=== PATIENT | female | born 1995 | race Caucasian/White ===

== ENCOUNTER 2024-07-16 20:41 | Emergency (ER) | payer OTHER ==
--- NOTE | 2024-07-17 01:04 | EDPHYS ---
Physician Documentation [facility] Name: Trish Estrada Age: 28 yrs Sex: Female : 1995 Arrival Date: 07/16/2024 Time: 20:41 Bed 17 Private MD: ED Physician Luciano Mata HPI: 07/16 22:12 This 28 yrs old Female presents to ER via Unassigned with complaints of Fall Injury. kb 22:12 Pt is a 28 year old female who slipped and fell in a puddle of water on the concrete. kb States she fell onto her back. complains of pain to low back only. Denies numbness/tingling to lower extremities.. 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 - Infectious Disease History:: Denies. - Social history:: Smoking status: Patient denies any tobacco usage or history of. Patient/guardian denies using. ROS: 07/16 22:11 Constitutional: As per HPI kb Exam: 22:11 Constitutional: This is a well developed, well nourished patient who is awake, alert, kb and in no acute distress. Head/Face: Normocephalic, atraumatic. ENT: Moist Mucous membranes Neck: Trachea midline, no thyromegaly or masses palpated, and no cervical lymphadenopathy. Supple, full range of motion without nuchal rigidity, or vertebral point tenderness. No Meningismus. Cardiovascular: Regular rate Respiratory: Respirations even and unlabored. No increased work of breathing. Talking in full sentences Abdomen/GI: Soft, non-tender. No distention Skin: Warm, dry with normal turgor. Normal color. MS/ Extremity: Pulses equal, no cyanosis. Neurovascular intact. Full, normal range of motion. Neuro: Awake and alert, GCS 15, oriented to person, place, time, and situation. Moves all extremities. Normal gait. 22:11 Back: pain, that is mild, that is moderate, of the lumbar area and sacrum, ROM is normal, normal spinal alignment noted, Vital Signs: 20:52 BP 121 / 91; Pulse 107; Resp 19; Temp 99.7(O); Pulse Ox 100% on R/A; Pain 4/10; mt4 20:52 Weight 85.28 kg (R); Height 5 ft. 3 in. (R); mt4 22:30 BP 122 / 76; Pulse 99; Resp 16; Pulse Ox 98% ; mt4 07/17 01:45 BP 118 / 75; Pulse 87; Resp 18; Temp 97.9; Pulse Ox 99% on R/A; Pain 2/10; mt4 07/16 20:52 Body Mass Index 33.30 (85.28 kg, 160.02 cm) mt4 07/16 20:52 Pain Scale: Adult mt4 07/17 01:45 Pain Scale: Adult mt4 Krys Coma Score: 07/16 20:52 Eye Response: spontaneous(4). Motor Response: obeys commands(6). Verbal Response: mt4 oriented(5). Total: 15. Trauma Score (Adult): 20:52 Eye Response: spontaneous(1); Verbal Response: oriented(1); Motor Response: obeys mt4 commands(2); Systolic BP: > 89 mm Hg(4); Respiratory Rate: 10 to 29 per min(4); Krys Score: 15; Trauma Score: 12 MDM: 20:43 Patient medically screened. 22:11 Differential diagnosis: contusion, fracture. Data reviewed: vital signs, nurses notes. Historians other than the Patient: EMS: [facility]. 07/17 00:27 Counseling: I had a detailed discussion with the patient and/or guardian regarding the historical points, exam findings, and any diagnostic results supporting the discharge/admit diagnosis, radiology results, the need for outpatient follow up, a family practitioner, to return to the emergency department if symptoms worsen or persist or if there are any questions or concerns that arise at home. 07/16 21:57 Order name: Test, Serum; Complete Time: 23:03 07/16 20:55 Order name: Lumbar Spine (3 Views) XRAY 07/16 20:55 Order name: Sacrum And Coccyx XRAY Administered Medications: 01:40 Drug: Ibuprofen PO 600 mg PO once Route: PO; mt4 01:53 Follow up: Response: No adverse reaction mt4 Disposition: 07:14 Co-signature as Attending Physician, Luciano Mata MD I agree with the assessment and ethan plan of care. Disposition Summary: 07/17/24 01:03 Discharge Ordered Notes: Location: Home kb Condition: Stable kb Diagnosis - Low back pain kb - Fall on same level, unspecified kb Followup: kb - With: Emergency Department - When: As needed - Reason: Worsening of condition Followup: kb - With: Private Physician - When: 2 - 3 days - Reason: Recheck today's complaints, Continuance of care, Re-evaluation by your physician Discharge Instructions: - Discharge Summary Sheet kb - Musculoskeletal Pain kb Forms: - Medication Reconciliation Form kb - Antibiotic Education kb - Prescription Opioid Use kb - Patient Portal Instructions kb - Leadership Thank You Letter kb Prescriptions: - Diclofenac Sodium 75 mg Oral tablet, delayed release (enteric coated) - take 1 tablet ORAL route 2 times per day As needed; 30 tablet; Refills: 0, kb Product Selection Permitted - orphenadrine citrate 100 mg Oral Tablet Sustained Release - take 1 tablet ORAL route 2 times per day As needed; 20 tablet; Refills: 0, kb Product Selection Permitted Signatures: Dispatcher [employer] EDMS Alesha Burgos, DRY TRANSFER MAN-C DRY TRANSFER MAN-Luciano Brar MD MD cha Tath, Molinec, RN RN mt4 Corrections: (The following items were deleted from the chart) 07/16 20:56 20:56 Sacrum And Coccyx+RAD.RAD.BRZ ordered. EDMS EDMS 22:18 20:56 Test, Urine+UC.LAB.BRZ ordered. EDMS EDMS
--- NOTE | 2024-07-17 01:04 | ER ---
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 c/o pain to right lower back 02/19. Denies N/V/D, Denies PMH. Care prior to arrival: None. Mechanism of Injury: Fall from standing position. approximately 3 feet. Trauma event details: Injury occurred in the [facility], Injury occurred: on a street or highway. Injury occurred: July 16, 2024 Injury occurred at: 20:00. 20:52 Acuity: SAURABH 3 mt4 20:52 Method Of Arrival: EMS mt4 22:00 Coronavirus screen: At this time, the client does not indicate any symptoms associated mt4 with coronavirus-19. Ebola Screen: Patient denies exposure to infectious person. Initial Sepsis Screen: Does the patient meet any 2 criteria? No. Patient's initial sepsis screen is negative. Does the patient have a suspected source of infection? No. Patient's initial sepsis screen is negative. Risk Assessment: Do you want to hurt yourself or someone else? Patient reports no desire to harm self or others. Onset of symptoms was July 16, 2024. 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 - Infectious Disease History:: Denies. - Social history:: Smoking status: Patient denies any tobacco usage or history of. Patient/guardian denies using. Screenin/04 20:52 Abuse screen: Denies injuries from another. Tuberculosis screening: No symptoms or risk mt4 factors identified. Fall risk. Exposure risk/Travel Screening: None identified. 21:00 [facility] ED Fall Risk Assessment (Adult) Altered Elimination. [facility] ED Fall Risk mt4 Assessment (Adult) History of falling in the last 3 months, including since admission Yes- single mechanical fall (1 pt) Confusion or Disorientation No (0 pts) Intoxicated or Sedated No (0 pts) Impaired Gait Yes (1 pt) Mobility Assist Device Used No (0 pt) Altered Elimination No (0 pt) Score/Fall Risk Level 0 - 2 = Low Risk Oriented to surroundings, Maintained a safe environment, Educated pt \\T\\ family on fall prevention, incl call for assistance when getting out of bed, Provided non-skid footwear, Hourly rounding (assess needs \\T\\ fall precautionary measures) done. 21:00 Nutritional screening: No deficits noted. mt4 Primary Survey: 20:52 NO uncontrolled hemorrhage observed. A: The client is awake and alert. The airway is mt4 patent. Airway: patent. Breathing/Chest: Spontaneous respiratory effort, equal unlabored respirations, breath sounds clear bilaterally, regular pattern, symmetrical chest rise and fall. Circulation: No external hemorrhage present. Regular and strong central pulse, skin warm/dry/normal color. Disability Pupils are equal, round, reactive to light and accommodation. Client is alert. Exposure/Environment: No obvious injuries are noted at this time. Reassessment Alertness and Airway: Awake and alert. The airway is patent. Breathing: Spontaneous respiratory effort, equal unlabored respirations, breath sounds clear bilaterally, regular pattern with symmetrical chest rise and fall. Circulation: No external hemorrhage noted. Regular and strong central pulse, skin warm/dry/normal color. Disability: Pupils Pupils are equal, round, reactive to light and accomodation. Alert. Secondary Survey: 22:59 HEENT: No deficits noted. Gastrointestinal: No deficits noted. : No deficits noted. mt4 Musculoskeletal: Capillary refill < 3 seconds, Range of motion: intact in all extremities, Swelling absent. Assessment: 20:52 General: Appears in no apparent distress. comfortable, Behavior is calm, cooperative, mt4 appropriate for age. Pain: Complains of pain in back Pain does not radiate. Pain currently is 4 out of 10 on a pain scale. Quality of pain is described as burning, aching. Neuro: Level of Consciousness is awake, alert, obeys commands, Oriented to person, place, time, situation, Appropriate for age Automotive Sales Specialist are equal bilaterally Speech is normal, Facial symmetry appears normal. Cardiovascular: Capillary refill < 3 seconds Patient's skin is warm and dry. Respiratory: Airway is patent Respiratory effort is even, unlabored, Respiratory pattern is regular, symmetrical. GI: Abdomen is round non-distended, Abd is non tender. : Denies burning with urination. Musculoskeletal: Capillary refill < 3 seconds, Range of motion: intact in all extremities. Vital Signs: 20:52 BP 121 / 91; Pulse 107; Resp 19; Temp 99.7(O); Pulse Ox 100% on R/A; Pain 4/10; mt4 20:52 Weight 85.28 kg (R); Height 5 ft. 3 in. (R); mt4 22:30 BP 122 / 76; Pulse 99; Resp 16; Pulse Ox 98% ; mt4 09/05 01:45 BP 118 / 75; Pulse 87; Resp 18; Temp 97.9; Pulse Ox 99% on R/A; Pain 2/10; mt4 07/16 20:52 Body Mass Index 33.30 (85.28 kg, 160.02 cm) mt4 07/16 20:52 Pain Scale: Adult mt4 07/17 01:45 Pain Scale: Adult mt4 Krys Coma Score: 07/16 20:52 Eye Response: spontaneous(4). Motor Response: obeys commands(6). Verbal Response: mt4 oriented(5). Total: 15. Trauma Score (Adult): 20:52 Eye Response: spontaneous(1); Verbal Response: oriented(1); Motor Response: obeys mt4 commands(2); Systolic BP: > 89 mm Hg(4); Respiratory Rate: 10 to 29 per min(4); Otterbein Score: 15; Trauma Score: 12 ED Course: 20:42 Patient arrived in ED. jj6 20:42 Alesha Burgos FNP-C is [facility]. kb 20:42 Luciano Mata MD is Attending Physician. kb 20:51 Isabel Mo, RN is Primary Nurse. mt4 20:52 Patient has correct armband on for positive identification. Bed in low position. Call mt4 light in reach. Side rails up X 1. Patient maintains SpO2 saturation greater than 95% on room air. 20:52 No provider procedures requiring assistance completed. Inserted saline lock: 20 gauge mt4 in right antecubital area, using aseptic technique. Blood collected. Flushed with 10 mL NS. Patient maintains SpO2 saturation greater than 95% on room air. Thermoregulation: warm blanket given to patient. 21:11 Radiology exam delayed due to test not completed at this time. az 22:53 Triage completed. mt4 23:45 Lumbar Spine (3 Views) XRAY In Process Unspecified. EDMS 23:45 Sacrum And Coccyx XRAY In Process Unspecified. EDMS 07/17 02:24 Provided Education on: FALLS, SAFETY. mt4 02:24 IV discontinued, intact, bleeding controlled, No redness/swelling at site. Pressure mt4 dressing applied. 02:26 Arm band placed on right wrist. mt4 Administered Medications: 01:40 Drug: Ibuprofen PO 600 mg PO once Route: PO; mt4 01:53 Follow up: Response: No adverse reaction mt4 Medication: 02:26 VIS not applicable for this client. mt4 Output: 02:24 Urine: 200ml (Voided); Total: 200ml. mt4 Outcome: 01:03 Discharge ordered by . kb 02:20 Condition: stable mt4 02:20 Discharge instructions given to patient, Instructed on discharge instructions, follow up and referral plans. medication usage, safety practices, Demonstrated understanding of instructions, follow-up care, medications, 02:20 Prescriptions given X 2, 02:24 Discharged to home ambulatory, mt4 02:25 Patient's length of stay in the Emergency Department was greater than 2 hours. PENDING mt4 URINE SAMPLE, PT UNABLE TO PROVIDE URINE IN TIMELY MANNER, STRAIGHT CATH ATTEMPTED, provider awarePatient's length of stay extended due to 02:27 Patient left the ED. mt4 Signatures: Dispatcher [employer] EDMS Alesha Burgos FNP-C ACCOUNTING GENERALIST-Ckb Shanda Sanchez Jennifer [email or web address] Isabel Mo, RN RN mt4
[2024-07-17] MEDS ORDERED: IBUPROFEN 200 MG TAB PO ONE (01:36)
[2024-07-17 02:52] VITALS: BP 118/75; TEMP 97.9; O2SAT 99
--- NOTE | 2024-07-17 11:33 | RAD REPORT ---
EXAM DESCRIPTION: RAD - Lumbar Spine 3 Views - 07/16/2024 11:43 pm CLINICAL HISTORY: The patient is 28 years old and is Female; PAIN TECHNIQUE: Frontal and lateral views of the lumbar spine and sacrum. COMPARISON: No relevant prior studies available. FINDINGS: VERTEBRAE: Unremarkable. No acute fracture. Normal alignment. SACRUM/COCCYX: Unremarkable as visualized. No acute fracture. DISC SPACES: No acute findings. No significant narrowing. SOFT TISSUES: Unremarkable. IMPRESSION: Normal lumbar spine radiographs. Electronically signed by: Carolann Ahuja MD 07/17/2024 12:28 AM CDT RP Due to temporary technical issues with the PACS/Fluency reporting system, reports are being signed by the in house radiologist without review as a courtesy to ensure prompt reporting. The interpreting r adiologist is fully responsible for the content of the report.
--- NOTE | 2024-07-17 11:34 | RAD REPORT ---
EXAM DESCRIPTION: RAD - Sacrum And Coccyx - 07/16/2024 11:43 pm CLINICAL HISTORY: Pain. COMPARISON: None. TECHNIQUE: 3 views of the sacrum and coccyx FINDINGS: No acute osseous abnormality is noted. No dislocation present. Soft tissues are unrema rkable. IMPRESSION: No acute osseous abnormality. Electronically signed by: Scarlett Sales MD 07/17/2024 12:58 AM CDT RP Due to temporary technical issues with the PACS/Fluency reporting system, reports are being signed by the in house radiologist without review as a courtesy to ensure prompt reporting. The interpreting r adiologist is fully responsible for the content of the report.
== END 2024-07-17 02:27 | disposition home or self-care (01) ==
LOC: ER 20:41
DX: M54.50 Low back pain, unspecified (principal); W01.0XXA Fall on same level from slipping, tripping and stumbling without subsequent striking against object, initial encounter
CPT/HCPCS: 36415; 72100; 72220; 84703; 99284

== ENCOUNTER 2025-02-17 22:02 | Emergency (ER) | payer OTHER ==
[2025-02-17] MEDS ORDERED: hydrOXYzine HCL 25 MG TAB ONE (22:47)
[2025-02-17 23:00] LABS: Absolute Basophils 0.1 K/uL (0-0.5); Absolute Eosinophils 0.5 K/uL (0-0.5); Absolute Lymphocytes (CBC) 3.3 K/uL (0.7-4.9); Absolute Monocytes 0.8 K/uL (0.1-1.3); Absolute Neutrophil 8.1 K/uL (1.8-8.0); Basophils % 0.6 % (0-1.3); Eosinophils % 3.7 % (0-4.4); Lymphocytes % 25.8 % (15.3-44.8); MCH 28.4 pg (27.0-35.0); MCHC 34.2 g/dL (32.0-36.0); MPV 8.3 fL (7.6-11.3); Monocytes % 6.4 % (3.3-12.3); Neutrophils % 63.5 % (41.7-73.7); Nucleated Red Blood Cells % 0.1 % (0-0); Platelets 284 thou/uL (152-406); RBC Red Blood Cell Count 4.94 M/uL (3.86-4.86); Red Cell Distribution Width 12.9 % (12.1-15.2)
[2025-02-17 23:35] LABS: Anion Gap 13.5 mEq/L (5.0-15.0); BUN Blood Urea Nitrogen 20 mg/dL (7-18); Bicarbonate 23 mEq/L (21-32); Glomerular Filtration Rate 96 ml/min (=/>90); Glucose Level 97 mg/dL (74-106); Potassium 3.5 mEq/L (3.5-5.1); Sodium Level 139 mEq/L (136-145); Troponin High Sensitivity < 3.0 pg/mL (<58.9)
--- NOTE | 2025-02-17 23:50 | ER ---
Nurse's Notes [facility] Name: Trish Estrada Age: 29 yrs Sex: Female : 1995 Arrival Date: 02/17/2025 Time: 22:02 Bed 6 Private MD: Diagnosis: Palpitations;Acute stress reaction Presentation: 02/17 22:12 Chief complaint: Patient states: she feels like her heart is beating very fast for me1 about 4-5 days, reports anxiety recently. Coronavirus screen: Vaccine status: Patient reports being unvaccinated. Ebola Screen: No symptoms or risks identified at this time. Initial Sepsis Screen: Does the patient meet any 2 criteria? HR > 90 bpm. Does the patient have a suspected source of infection? No. Patient's initial sepsis screen is negative. Risk Assessment: Do you want to hurt yourself or someone else? Patient reports no desire to harm self or others. Onset of symptoms was February 12, 2025. 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 - Infectious Disease History:: Denies. - Social history:: Smoking status: Patient denies any tobacco usage or history of. Screenin:30 [facility] ED Fall Risk Assessment (Adult) History of falling in the last 3 months, vc1 including since admission No falls in past 3 months (0 pts) Confusion or Disorientation No (0 pts) Intoxicated or Sedated No (0 pts) Impaired Gait No (0 pts) Mobility Assist Device Used No (0 pt) Altered Elimination No (0 pt) Score/Fall Risk Level 0 - 2 = Low Risk Oriented to surroundings, Maintained a safe environment, Educated pt \T\ family on fall prevention, incl call for assistance when getting out of bed, Hourly rounding (assess needs \T\ fall precautionary measures) done. Abuse screen: Denies threats or abuse. Nutritional screening: No deficits noted. Tuberculosis screening: No symptoms or risk factors identified. Assessment: 23:00 Reassessment: Patient and/or family updated on plan of care and expected duration. Pain br2 level reassessed. Patient is alert, oriented x 3, equal unlabored respirations, skin warm/dry/pink. General: Appears in no apparent distress. comfortable, Behavior is calm, cooperative. 23:01 Pain: Complains of pain in mid-sternal area. Neuro: Matos Agitation-Sedation Scale br2 (RASS): 0 - Alert and Calm Level of Consciousness is awake, alert, obeys commands, Oriented to person, place, time, situation. Cardiovascular: Reports chest pain, Capillary refill < 3 seconds. Respiratory: Airway is patent Respiratory effort is even, unlabored, Respiratory pattern is regular, symmetrical. GI: No signs and/or symptoms were reported involving the gastrointestinal system. : No signs and/or symptoms were reported regarding the genitourinary system. EENT: No signs and/or symptoms were reported regarding the EENT system. Derm: No signs and/or symptoms reported regarding the dermatologic system. Musculoskeletal: No signs and/or symptoms reported regarding the musculoskeletal system. 23:52 Reassessment: Patient appears in no apparent distress at this time. Patient and/or vc1 family updated on plan of care and expected duration. Pain level reassessed. Patient is alert, oriented x 3, equal unlabored respirations, skin warm/dry/pink. Patient denies pain at this time. Patient states feeling better. Vital Signs: 22:12 BP 133 / 102; Pulse 97; Resp 20; Temp 98.3; Pulse Ox 100% ; Weight 83.46 kg; Height 5 me1 ft. 3 in. ; Pain 4/10; 23:00 BP 103 / 72; Pulse 81; Resp 16; Pulse Ox 98% ; vc1 23:52 BP 108 / 73; Pulse 74; Resp 16; Pulse Ox 98% ; vc1 22:12 Body Mass Index 32.59 (83.46 kg, 160.02 cm) me1 22:12 Pain Scale: Adult [facility] ED Course: 22:05 Patient arrived in ED. mr 22:07 Ales[facility] Burg[facility]C [facility] kb 22:07 Martínez Mercado MD is Attending Physician. kb 22:14 Triage completed. me1 22:14 Arm band placed on Patient placed in an exam room. me1 22:15 Patient has correct armband on for positive identification. Bed in low position. Call vc1 light in reach. site monitor on. Pulse ox on. NIBP on. 22:41 Inserted saline lock: 20 gauge in right antecubital area, using aseptic technique. vk Flushed with 10 mL NS. 22:41 Initial lab(s) drawn, by me, sent to lab. vk 22:44 Elise Sanabria, RN is Primary Nurse. br2 22:47 Basic Metabolic Panel Sent. vk 22:47 CBC with Diff Sent. vk 22:47 Troponin HS Sent. vk 22:50 XRAY Chest (1 view) In Process Unspecified. EDMS 02/18 00:04 No provider procedures requiring assistance completed. IV discontinued, intact, vc1 bleeding controlled, No redness/swelling at site. Pressure dressing applied. 00:05 Provided Education on: f/u with PCP. vc1 Administered Medications: 02/17 22:13 CANCELLED (Patient Refused): ativan1 mg IVP once kb 23:07 Drug: hydrOXYzine PO 25 mg PO once Route: PO; br2 04 00:03 Follow up: Response: No adverse reaction; Marked relief of symptoms vc1 00:03 Drug: hydrOXYzine PO 25 mg PO once Route: PO; vc1 00:03 Follow up: Response: Medication administered at discharge. vc1 Medication: 02/17 23:54 VIS not applicable for this client. vc1 Outcome: 23:49 Discharge ordered by . dave 02/18 00:05 Discharged to home ambulatory, with significant other, vc1 Condition: stable Discharge instructions given to patient, Instructed on discharge instructions, follow up and referral plans. Demonstrated understanding of instructions, follow-up care, 00:06 Patient left the ED. vc1 Signatures: Dispatcher [employer] EDGA Alesha Burgos, AUTO JOB ESTIMATOR-C AUTO JOB ESTIMATOR-Ckb Mar Casillas, Reg Reg mr Marla Shipman, RN RN vc1 Teressa Campbell, JULIANNA RN me1 Nelda Potts Elise Sanabria, RN RN br2 Corrections: (The following items were deleted from the chart) 02/17 22:16 22:14 Allergies: No Known Allergies; me1 me1 23:18 22:47 THYROID STIMULAT HORMONE+C.LAB.BRZ drawn and sent. vk EDMS
--- NOTE | 2025-02-17 23:50 | EDPHYS ---
Physician Documentation [facility] Name: Trish Estrada Age: 29 yrs Sex: Female : 1995 Arrival Date: 02/17/2025 Time: 22:02 Bed 6 Private MD: ED Physician Martínez Mercado HPI: 02/17 22:08 This 29 yrs old Female presents to ER via Unassigned with complaints of Fast heart beat.kb 22:08 Pt is a 29 year old female who presents for palpitations that started 4-5 days ago. kb States it feels similar to previous anxiety attacks, but is worse than she has ever had. Denies any medications. . 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 - Infectious Disease History:: Denies. - Social history:: Smoking status: Patient denies any tobacco usage or history of. ROS: 22:08 Constitutional: As per HPI kb Exam: 22:08 Constitutional: This is a well developed, well nourished patient who is awake, alert, kb and in no acute distress. Head/Face: Normocephalic, atraumatic. ENT: Moist Mucous membranes Cardiovascular: Regular rate Respiratory: Respirations even and unlabored. No increased work of breathing. Talking in full sentences Skin: Warm, dry with normal turgor. Normal color. MS/ Extremity: Pulses equal, no cyanosis. Neurovascular intact. Full, normal range of motion. Neuro: Awake and alert, GCS 15, oriented to person, place, time, and situation. 22:57 ECG was reviewed by the Attending Physician. kb Vital Signs: 22:12 BP 133 / 102; Pulse 97; Resp 20; Temp 98.3; Pulse Ox 100% ; Weight 83.46 kg; Height 5 me1 ft. 3 in. ; Pain 4/10; 23:00 BP 103 / 72; Pulse 81; Resp 16; Pulse Ox 98% ; vc1 23:52 BP 108 / 73; Pulse 74; Resp 16; Pulse Ox 98% ; vc1 22:12 Body Mass Index 32.59 (83.46 kg, 160.02 cm) me1 22:12 Pain Scale: Adult me1 MDM: 22:07 Medical Screening Exam initiated kb 23:48 Data reviewed: vital signs, nurses notes. kb 23:48 Differential diagnosis: anxiety, arrhythmia. Counseling: I had a detailed discussion kb with the patient and/or guardian regarding the historical points, exam findings, and any diagnostic results supporting the discharge/admit diagnosis, lab results, radiology results, the need for outpatient follow up, a family practitioner, to return to the emergency department if symptoms worsen or persist or if there are any questions or concerns that arise at home. ED course: Pt states she is feeling better after treatment, but feels like an attack is right under the surface. Requests a higher dose of the hydroxyzine prior to discharge. 04 22:11 Order name: Basic Metabolic Panel; Complete Time: 23:38 kb 0408 22:11 Order name: CBC with Diff; Complete Time: 23:01 kb 02/17 22:11 Order name: Troponin HS; Complete Time: 23:38 kb 08 23:18 Order name: Thyroid Stimulating Hormone; Complete Time: 23:38 EDMS 0408 22:11 Order name: XRAY Chest (1 view) kb 0408 22:11 Order name: Cardiac monitoring; Complete Time: 22:47 kb 08 22:11 Order name: EKG - Nurse/Tech; Complete Time: 22:47 kb 08 22:11 Order name: IV Saline Lock; Complete Time: 22:41 kb 08 22:11 Order name: Labs collected and sent; Complete Time: 22:47 kb 02/17 22:11 Order name: O2 Per Protocol; Complete Time: 22:41 kb 02/17 22:11 Order name: O2 Sat Monitoring; Complete Time: 22:41 kb EC:57 Rate is 83 beats/min. Rhythm is regular. QRS [place] is Normal. MI interval is normal at kb 144 msec. QRS interval is normal at 78 msec. QT interval is normal at 444 msec. Administered Medications: 22:13 CANCELLED (Patient Refused): ativan1 mg IVP once kb 23:07 Drug: hydrOXYzine PO 25 mg PO once Route: PO; br2 02/18 00:03 Follow up: Response: No adverse reaction; Marked relief of symptoms vc1 00:03 Drug: hydrOXYzine PO 25 mg PO once Route: PO; vc1 00:03 Follow up: Response: Medication administered at discharge. vc1 Disposition: 05:19 Co-signature as Attending Physician, Martínez Mercado MD I agree with the assessment sp4 and plan of care. I reviewed the patient's care provided by the Advanced Practice Provider and agree with the diagnosis and treatment plan. Disposition Summary: 02/17/25 23:49 Discharge Ordered Notes: Location: Home kb Condition: Stable kb Diagnosis - Palpitations kb - Acute stress reaction kb Followup: kb - With: Emergency Department - When: As needed - Reason: Worsening of condition Followup: kb - With: Private Physician - When: 2 - 3 days - Reason: Recheck today's complaints, Continuance of care, Re-evaluation by your physician Discharge Instructions: - Discharge Summary Sheet kb - Panic Attack, [id number]-[id number] kb - Palpitations, [id number]-[id number] kb Forms: - Medication Reconciliation Form kb - Antibiotic Education kb - Prescription Opioid Use kb - Patient Portal Instructions kb - Leadership Thank You Letter kb Signatures: Dispatcher [employer] EDMS Alesha Burgos, PRIMER INSERTING MACHINE ADJUSTER-C PRIMER INSERTING MACHINE ADJUSTER-Marla Rodrigez RN RN vc1 Martínez Mercado MD MD sp4 Teressa Campbell RN RN me1 Elise Sanabria RN RN br2 Corrections: (The following items were deleted from the chart) 02/17 22:11 22:11 BASIC METABOLIC PANEL+C.LAB.BRZ ordered. EDMS EDMS 22:11 22:11 CBC+H.LAB.BRZ ordered. EDMS EDMS 22:11 22:11 Troponin High Sensitivity+C.LAB.BRZ ordered. EDMS EDMS 22:11 22:11 Chest Single View+RAD.RAD.BRZ ordered. EDMS EDMS 22:13 22:11 Ativan IVP 1 mg IVP once ordered. kb kb 22:16 22:14 Allergies: No Known Allergies; me1 me1 23:18 22:13 THYROID STIMULAT HORMONE+C.LAB.BRZ ordered. EDMS EDMS
[2025-02-17] MEDS ORDERED: HYDRALAZINE HCL 25 MG TABLET ONE (23:58)
[2025-02-18 01:18] VITALS: TEMP 98.3
[2025-02-18 01:24] VITALS: O2SAT 98
[2025-02-18 01:29] VITALS: BP 108/73
--- NOTE | 2025-02-18 07:43 | RAD REPORT ---
EXAMINATION: ONE VIEW CHEST XR CLINICAL INDICATION: PALPITATIONS TECHNIQUE: Frontal chest projection is submitted. Examination is limited by patient positioning and t echnique. COMPARISON: No prior exam. FINDINGS: The lungs are well inflated and clear. The heart is normal in size. No displaced fractures identified . IMPRESSION: No acute intrathoracic abnormalities.
--- NOTE | 2025-02-18 11:57 | EKG ---
Test Date: 2025-02-17 Test Time: 22:52:20 Cosmetic Chemist: GUI MEASUREMENT RESULTS: Intervals: Rate: 83 KS: 144 QRSD: 78 QT: 378 QTc: 444 [place]: P: 65 KS: 144 QRS: 75 T: 29 INTERPRETIVE STATEMENTS: Normal sinus rhythm Normal ECG No previous ECG available for comparison Electronically Signed On 02-18-25 11:56:08 CDT by Gus Martínez
== END 2025-02-18 00:06 | disposition home or self-care (01) ==
LOC: ER 22:02
DX: R00.2 Palpitations (principal); F43.9 Reaction to severe stress, unspecified; Z88.5 Allergy status to narcotic agent
CPT/HCPCS: 36415; 71045; 80048; 84443; 84484; 85025; 93005; 99284

== ENCOUNTER 2025-02-18 22:30 | Emergency (ER) | payer OTHER ==
[2025-02-18] MEDS ORDERED: hydrOXYzine HCL 25 MG TAB ONE (23:13)
--- NOTE | 2025-02-19 00:11 | EDPHYS ---
Physician Documentation [facility] Name: Trish Estrada Age: 29 yrs Sex: Female : 1995 Arrival Date: 02/18/2025 Time: 22:30 Bed IW1 Private MD: ED Physician Martínez Mercado HPI: 02/18 23:10 This 29 yrs old Female presents to ER via Ambulatory with complaints of Anxiety, heart kb rate issues. 23:10 Pt is a 29 year old female who presents for anxiety and intermittent palpitations. Pt kb states her anxiety has been getting worse and she has an appt with psych at the end of the month. Pt was here yesterday, had serum labs completed that were wnl. Pt was given hydroxyzine and reports that helps her. . 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 - Infectious Disease History:: Denies. - Social history:: Smoking status: Patient denies any tobacco usage or history of. ROS: 23:08 Constitutional: As per HPI kb Exam: 23:08 Constitutional: This is a well developed, well nourished patient who is awake, alert, kb and in no acute distress. Head/Face: Normocephalic, atraumatic. ENT: Moist Mucous membranes Cardiovascular: Regular rate Respiratory: Respirations even and unlabored. No increased work of breathing. Talking in full sentences Skin: Warm, dry with normal turgor. Normal color. MS/ Extremity: Pulses equal, no cyanosis. Neurovascular intact. Full, normal range of motion. Neuro: Awake and alert, GCS 15, oriented to person, place, time, and situation. 23:08 ECG was reviewed by the Attending Physician. Vital Signs: 22:44 BP 129 / 88; Pulse 85; Resp 18; Temp 98.5; Pulse Ox 97% ; MAP 184 mmHg; Weight 83.46 bm8 kg; Height 5 ft. 3 in. ; Pain 0/10; 22:44 Body Mass Index 32.59 (83.46 kg, 160.02 cm) bm8 22:44 Pain Scale: Adult bm8 MDM: 22:35 Medical Screening Exam initiated kb 23:09 Data reviewed: vital signs, nurses notes. kb 02/19 00:08 Differential diagnosis: anxiety, palpitations, arrhythmia. Test considered but Not kb performed: Labs: cbc, cmp considered but were completed last night, symptoms are not different, vs wnl, ekg normal, symptoms improved after treatment. Counseling: I had a detailed discussion with the patient and/or guardian regarding the historical points, exam findings, and any diagnostic results supporting the discharge/admit diagnosis, the need for outpatient follow up, a family practitioner, to return to the emergency department if symptoms worsen or persist or if there are any questions or concerns that arise at home. 02/18 22:47 Order name: EKG; Complete Time: 22:48 kb 02/18 22:47 Order name: EKG - Nurse/Tech; Complete Time: 23:10 kb EC/09 23:08 Rate is 76 beats/min. Rhythm is regular. QRS [place] is Normal. MT interval is normal at kb 142 msec. QRS interval is normal at 76 msec. QT interval is normal at 447 msec. Administered Medications: 23:14 Drug: hydrOXYzine PO 50 mg PO once Route: PO; bm8 Disposition: 02/19 20:09 Co-signature as Attending Physician, Martínez Mercado MD I agree with the assessment sp4 and plan of care. I reviewed the patient's care provided by the Advanced Practice Provider and agree with the diagnosis and treatment plan. Disposition Summary: 02/19/25 00:10 Discharge Ordered Notes: Location: Home kb Condition: Stable kb Diagnosis - Acute stress reaction kb - Palpitations kb Followup: kb - With: Emergency Department - When: As needed - Reason: Worsening of condition Followup: kb - With: Private Physician - When: 2 - 3 days - Reason: Recheck today's complaints, Continuance of care, Re-evaluation by your physician Discharge Instructions: - Discharge Summary Sheet kb - Panic Attack, Dojq-eu-Ahre kb - Palpitations, Lbcy-oo-Pspn kb Forms: - Medication Reconciliation Form kb - Antibiotic Education kb - Prescription Opioid Use kb - Patient Portal Instructions kb - Leadership Thank You Letter kb Prescriptions: - Hydroxyzine HCl 25 mg Oral tablet - take 1 tablet ORAL route every 6 hours As needed; 20 tablet; Refills: 0, kb Product Selection Permitted Signatures: Dispatcher [employer] Alesha Hoover, Martínez Haro MD MD sp4 Ralph Wallis RN RN bm8
--- NOTE | 2025-02-19 00:11 | ER ---
Nurse's Notes [facility] Name: Trish Estrada Age: 29 yrs Sex: Female : 1995 Arrival Date: 02/18/2025 Time: 22:30 Bed IW1 Private MD: Diagnosis: Acute stress reaction;Palpitations Presentation: 02/18 22:44 Chief complaint: Patient states: Heart rate races when she stands and has anxiety. bm8 Coronavirus screen: Vaccine status: Patient reports being unvaccinated. Ebola Screen: Patient negative for fever greater than or equal to 101.5 degrees Fahrenheit, and additional compatible Ebola Virus Disease symptoms Patient denies exposure to infectious person. Patient denies travel to an Ebola-affected area in the 21 days before illness onset. No symptoms or risks identified at this time. Initial Sepsis Screen: Does the patient meet any 2 criteria? No. Patient's initial sepsis screen is negative. Does the patient have a suspected source of infection? No. Patient's initial sepsis screen is negative. Risk Assessment: Do you want to hurt yourself or someone else? Patient reports no desire to harm self or others. Onset of symptoms is unknown. 22:44 Method Of Arrival: Ambulatory bm8 22:44 Acuity: SAURABH 3 bm8 Triage Assessment: 22:45 General: Appears in no apparent distress. comfortable, Behavior is calm, cooperative, bm8 appropriate for age. Pain: Denies pain. EENT: No deficits noted. No signs and/or symptoms were reported regarding the EENT system. Neuro: No deficits noted. Cardiovascular: Reports palpitations, Heart tones S1 S2 present Capillary refill < 3 seconds in bilateral fingers Patient's skin is warm and dry. Respiratory: No deficits noted. GI: No deficits noted. : No deficits noted. Derm: No deficits noted. Musculoskeletal: No deficits noted. 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 - Infectious Disease History:: Denies. - Social history:: Smoking status: Patient denies any tobacco usage or history of. Screenin:00 [facility] ED Fall Risk Assessment (Adult) History of falling in the last 3 months, vc1 including since admission No falls in past 3 months (0 pts) Confusion or Disorientation No (0 pts) Intoxicated or Sedated No (0 pts) Impaired Gait No (0 pts) Mobility Assist Device Used No (0 pt) Altered Elimination No (0 pt) Score/Fall Risk Level 0 - 2 = Low Risk Oriented to surroundings, Maintained a safe environment, Educated pt \T\ family on fall prevention, incl call for assistance when getting out of bed, Hourly rounding (assess needs \T\ fall precautionary measures) done. Abuse screen: Denies threats or abuse. Nutritional screening: No deficits noted. Tuberculosis screening: No symptoms or risk factors identified. Vital Signs: 22:44 BP 129 / 88; Pulse 85; Resp 18; Temp 98.5; Pulse Ox 97% ; MAP 184 mmHg; Weight 83.46 bm8 kg; Height 5 ft. 3 in. ; Pain 0/10; 22:44 Body Mass Index 32.59 (83.46 kg, 160.02 cm) bm8 22:44 Pain Scale: Adult bm8 ED Course: 22:33 Patient arrived in ED. im 22:35 [facility] Burg[facility]C [facility] kb 22:35 Martínez Mercado MD is Attending Physician. kb 22:45 Triage completed. bm8 22:45 Arm band placed on right wrist. bm8 23:00 Provided Education on: plan of care. vc1 23:00 Patient has correct armband on for positive identification. vc1 02/19 00:50 Marla Shipman, RN is Primary Nurse. vc1 00:50 No provider procedures requiring assistance completed. Patient did not have IV access vc1 during this emergency room visit. Administered Medications: 02/18 23:14 Drug: hydrOXYzine PO 50 mg PO once Route: PO; bm8 Medication: 02/19 00:51 VIS not applicable for this client. vc1 Outcome: 00:10 Discharge ordered by . kb 00:50 Discharged to home ambulatory, vc1 00:50 Condition: stable 00:50 Discharge instructions given to patient, Instructed on discharge instructions, follow up and referral plans. medication usage, Demonstrated understanding of instructions, follow-up care, medications, Prescriptions given X 1, 00:51 Patient left the ED. vc1 Signatures: Alesha Burgos FNP-C FNP-Marla Rodrigez RN RN vc1 Lora Elliott Brad RN RN bm8
[2025-02-19 01:01] VITALS: BP 129/88; TEMP 98.5; O2SAT 97
--- NOTE | 2025-02-19 11:46 | EKG ---
Test Date: 2025-02-18 Test Time: 23:03:11 Dyed Raw Stock Blower Feeder: SEBASTIAN MEASUREMENT RESULTS: Intervals: Rate: 76 MT: 142 QRSD: 76 QT: 398 QTc: 447 [place]: P: 67 MT: 142 QRS: 88 T: 53 INTERPRETIVE STATEMENTS: Normal sinus rhythm Normal ECG Compared to ECG 02/17/2025 22:52:20 No significant changes Electronically Signed On 02-19-25 11:44:30 CDT by Gus Martínez
== END 2025-02-19 00:51 | disposition home or self-care (01) ==
LOC: ER 22:30
DX: F43.0 Acute stress reaction (principal); F41.9 Anxiety disorder, unspecified
CPT/HCPCS: 93005; 99283

== ENCOUNTER 2025-02-19 19:34 | Emergency (ER) | payer OTHER ==
[2025-02-19] MEDS ORDERED: hydrOXYzine HCL 25 MG TAB ONE (21:00)
--- NOTE | 2025-02-19 21:05 | ER ---
Nurse's Notes [facility] Name: Trish Estrada Age: 29 yrs Sex: Female : 1995 Arrival Date: 02/19/2025 Time: 19:34 Bed DX1 Private MD: Diagnosis: Anxiety Presentation: 02/19 20:53 Chief complaint: Patient states: Haven't been able to fill my meds waking up in sweats, vc1 feel heart racing when I go from sitting to standing. Coronavirus screen: Client denies travel out of the [place] in the last 14 days. At this time, the client does not indicate any symptoms associated with coronavirus-19. Ebola Screen: Patient negative for fever greater than or equal to 101.5 degrees Fahrenheit, and additional compatible Ebola Virus Disease symptoms Patient denies exposure to infectious person. Patient denies travel to an Ebola-affected area in the 21 days before illness onset. No symptoms or risks identified at this time. Initial Sepsis Screen: Does the patient meet any 2 criteria? No. Patient's initial sepsis screen is negative. Does the patient have a suspected source of infection? No. Patient's initial sepsis screen is negative. Risk Assessment: Do you want to hurt yourself or someone else? Patient reports no desire to harm self or others. Onset of symptoms is unknown. Care prior to arrival: None. 20:53 Method Of Arrival: Ambulatory vc1 20:53 Acuity: SAURABH 4 vc1 Triage Assessment: 20:55 General: Appears in no apparent distress. uncomfortable, Behavior is cooperative, vc1 anxious. Pain: Denies pain. EENT: No deficits noted. Neuro: Level of Consciousness is awake, alert, obeys commands, Oriented to person, place, time, situation, Appropriate for age. Cardiovascular: Reports heart racing Denies chest pain, Heart tones S1 S2 present Capillary refill < 3 seconds Patient's skin is warm and dry. Respiratory: Airway is patent Respiratory effort is even, unlabored, Respiratory pattern is regular, symmetrical, Breath sounds are clear bilaterally. GI: No deficits noted. No signs and/or symptoms were reported involving the gastrointestinal system. : No deficits noted. No signs and/or symptoms were reported regarding the genitourinary system. Derm: Skin is intact, is healthy with good turgor, Skin is dry, Skin is normal, Skin temperature is warm. Musculoskeletal: Circulation, motion, and sensation intact. Range of motion: intact in all extremities. 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 Flu vaccine is not up to date. - Infectious Disease History:: Denies. - Social history:: Smoking status: Patient denies any tobacco usage or history of. Screenin:56 [facility] ED Fall Risk Assessment (Adult) History of falling in the last 3 months, vc1 including since admission No falls in past 3 months (0 pts) Confusion or Disorientation No (0 pts) Intoxicated or Sedated No (0 pts) Impaired Gait No (0 pts) Mobility Assist Device Used No (0 pt) Altered Elimination No (0 pt) Score/Fall Risk Level 0 - 2 = Low Risk Oriented to surroundings, Maintained a safe environment, Educated pt \T\ family on fall prevention, incl call for assistance when getting out of bed, Hourly rounding (assess needs \T\ fall precautionary measures) done. Abuse screen: Denies threats or abuse. Nutritional screening: No deficits noted. Tuberculosis screening: No symptoms or risk factors identified. Assessment: 21:34 Reassessment: Patient and/or family updated on plan of care and expected duration. Pain vc1 level reassessed. Patient is alert, oriented x 3, equal unlabored respirations, skin warm/dry/pink. Patient states feeling better. Patient states symptoms have improved. Vital Signs: 20:53 BP 121 / 81; Pulse 83; Resp 18; Temp 98.4; Pulse Ox 98% ; Weight 83.46 kg; Height 5 ft. vc1 3 in. ; 21:34 BP 120 / 80; Pulse 81; Resp 17; Pulse Ox 98% ; vc1 20:53 Body Mass Index 32.59 (83.46 kg, 160.02 cm) vc1 ED Course: 19:35 Patient arrived in ED. im 20:07 Scottie Parsons MD is Attending Physician. sp3 20:54 Triage completed. vc1 20:55 Arm band placed on right wrist. vc1 20:57 Patient has correct armband on for positive identification. placed in diagnostic chair. vc1 21:01 EKG done, by ED staff, reviewed by Scottie Parsons MD. oe 21:03 Marla Shipman, RN is Primary Nurse. vc1 21:34 No provider procedures requiring assistance completed. Patient did not have IV access vc1 during this emergency room visit. 21:35 Provided Education on: fill prescription. vc1 Administered Medications: 21:03 Drug: hydrOXYzine PO 25 mg PO once Route: PO; vc1 21:33 Follow up: Response: No adverse reaction; Marked relief of symptoms; Anxiety decreased vc1 Medication: 21:34 VIS not applicable for this client. vc1 Outcome: 21:05 Discharge ordered by . sp3 21:34 Discharged to home ambulatory, vc1 21:34 Condition: good 21:34 Discharge instructions given to patient, Instructed on discharge instructions, follow up and referral plans. Demonstrated understanding of instructions, follow-up care, 21:35 Patient left the ED. vc1 Signatures: Abhay Valdez Scottie Parsons MD MD sp3 Marla Shipman, RN RN vc1 Lora Elliott
--- NOTE | 2025-02-19 21:05 | EDPHYS ---
Physician Documentation [facility] Name: Trish Estrada Age: 29 yrs Sex: Female : 1995 Arrival Date: 02/19/2025 Time: 19:34 Bed DX1 Private MD: ED Physician Scottie Parsons HPI: 02/19 20:59 This 29 yrs old Female presents to ER via Ambulatory with complaints of Anxiety, high sp3 heart rate. 20:59 29-year-old female with history of anxiety, depression, PTSD, history of tachycardia sp3 idiopathic, presents to the ED again for palpitations particularly when she stands up. Patient was seen by Dr. Fernandez twice over the last 3 days with first visit performing full workup including laboratory values. Day 2 she received hydroxyzine and was discharged. She presents today for continued symptoms and she was unable to get her prescription filled. Review of systems negative for headache, fever, shortness of breath, back pain, abdominal pain, nausea, vomiting, diarrhea, syncope, near syncope, known sick contacts, prolonged immobilization, travel history, or any other signs or symptoms on ROS at this time.. 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 Flu vaccine is not up to date. - Infectious Disease History:: Denies. - Social history:: Smoking status: Patient denies any tobacco usage or history of. ROS: 21:02 Constitutional: Negative for fever, chills, and weight loss, Eyes: Negative for injury, sp3 pain, redness, and discharge, ENT: Negative for injury, pain, and discharge, Neck: Negative for injury, pain, and swelling, Respiratory: Negative for shortness of breath, cough, wheezing, and pleuritic chest pain, Abdomen/GI: Negative for abdominal pain, nausea, vomiting, diarrhea, and constipation, Back: Negative for injury and pain, : Negative for injury, bleeding, discharge, and swelling, MS/Extremity: Negative for injury and deformity, Skin: Negative for injury, rash, and discoloration, Neuro: Negative for headache, weakness, numbness, tingling, and seizure, Allergy/Immunology: Negative for hives, rash, and allergies, Endocrine: Negative for neck swelling, polydipsia, polyuria, polyphagia, and marked weight changes, Hematologic/Lymphatic: Negative for swollen nodes, abnormal bleeding, and unusual bruising, 21:02 All other systems are negative, Exam: 21:02 Constitutional: This is a well developed, well nourished patient who is awake, alert, sp3 and in no acute distress. Head/Face: Normocephalic, atraumatic. Eyes: Pupils equal round and reactive to light, extra-ocular motions intact. Lids and lashes normal. Conjunctiva and sclera are non-icteric and not injected. Cornea within normal limits. Periorbital areas with no swelling, redness, or edema. Neck: Trachea midline, no thyromegaly or masses palpated, and no cervical lymphadenopathy. Supple, full range of motion without nuchal rigidity, or vertebral point tenderness. No Meningismus. Chest/axilla: Normal chest wall appearance and motion. Nontender with no deformity. No lesions are appreciated. Cardiovascular: Regular rate and rhythm with a normal S1 and S2. No gallops, murmurs, or rubs. Normal PMI, no JVD. No pulse deficits. Respiratory: Lungs have equal breath sounds bilaterally, clear to auscultation and percussion. No rales, rhonchi or wheezes noted. No increased work of breathing, no retractions or nasal flaring. Abdomen/GI: Soft, non-tender, with normal bowel sounds. No distension or tympany. No guarding or rebound. No evidence of tenderness throughout. Back: No spinal tenderness. No costovertebral tenderness. Full range of motion. Skin: Warm, dry with normal turgor. Normal color with no rashes, no lesions, and no evidence of cellulitis. MS/ Extremity: Pulses equal, no cyanosis. Neurovascular intact. Full, normal range of motion. Neuro: Awake and alert, GCS 15, oriented to person, place, time, and situation. Cranial nerves II-XII grossly intact. Motor strength 5/5 in all extremities. Sensory grossly intact. Cerebellar exam normal. Normal gait. 21:02 Psych: Patient anxious on exam. She denies SI, HI or psychosis.. 21:03 ECG was reviewed by the Attending Physician. EKG demonstrates normal sinus rhythm at 78 sp3 bpm with normal intervals, normal QRS, normal axis, normal ST/T-segment's without evidence of acute ischemia. Vital Signs: 20:53 BP 121 / 81; Pulse 83; Resp 18; Temp 98.4; Pulse Ox 98% ; Weight 83.46 kg; Height 5 ft. vc1 3 in. ; 21:34 BP 120 / 80; Pulse 81; Resp 17; Pulse Ox 98% ; vc1 20:53 Body Mass Index 32.59 (83.46 kg, 160.02 cm) vc1 MDM: 20:07 Medical Screening Exam initiated sp3 21:03 Data reviewed: vital signs, nurses notes, old medical records, EKG. ED course: sp3 29-year-old female with recurrent episode of anxiety. I believe patient's symptoms are anxiety coupled with mild orthostatic hypotension as heart rate did increase to 100 which quickly came back down to the 80s. EKG heart rate 78. Patient in no acute distress. All old laboratory values reviewed. Chest x-ray negative on prior visit. Will reassure patient, give repeat dose of hydroxyzine and discharge patient to outpatient follow-up at this time. Clinically have ruled out any acute emergency including acute coronary syndrome, PE, electrolyte imbalance, or any other critical process.. 04 20:52 Order name: EKG - Nurse/Tech; Complete Time: 21:01 vc1 02/19 20:53 Order name: PO challenge; Complete Time: 21:03 vc1 Administered Medications: 21:03 Drug: hydrOXYzine PO 25 mg PO once Route: PO; vc1 21:33 Follow up: Response: No adverse reaction; Marked relief of symptoms; Anxiety decreased vc1 Disposition Summary: 02/19/25 21:05 Discharge Ordered Notes: Location: Home sp3 Condition: Stable sp3 Diagnosis - Anxiety sp3 Followup: sp3 - With: Private Physician - When: Upon discharge from the Emergency Department - Reason: Continuance of care Discharge Instructions: - Discharge Summary Sheet sp3 - Orthostatic Hypotension sp3 - Generalized Anxiety Disorder, Adult sp3 Forms: - Medication Reconciliation Form sp3 - Antibiotic Education sp3 - Prescription Opioid Use sp3 - Patient Portal Instructions sp3 - Leadership Thank You Letter sp3 Signatures: Scottie Parsons MD MD sp3 Marla Shipman RN RN vc1
[2025-02-19 22:00] VITALS: TEMP 98.4; O2SAT 98
[2025-02-19 22:02] VITALS: BP 120/80
--- NOTE | 2025-02-20 14:14 | EKG ---
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
== END 2025-02-19 21:35 | disposition home or self-care (01) ==
LOC: ER 19:34
DX: F41.9 Anxiety disorder, unspecified (principal)
CPT/HCPCS: 93005; 99283